=== PATIENT | male | born 1965 | race Two or more races ===

== ENCOUNTER → 2022-11-03 | Day surgery (SDC) | payer OTHER | END | disposition home or self-care (01) | LOC: ADM 10-29 14:30 → AMB-ENDOS 09:50 → CIR.AMB 14:30 | PROVIDERS: ATTEND Colon & Rectal Surgery | DX: D12.4 Benign neoplasm of descending colon (principal); K62.1 Rectal polyp; K57.30 Diverticulosis of large intestine without perforation or abscess without bleeding; K64.8 Other hemorrhoids ==